=== PATIENT | male | born 1990 | race African-American/Black ===

== ENCOUNTER 2018-11-10 17:07 | Emergency (ER) | payer SELFPAY ==
[~2018-11-10] VITALS: Ht 172.7 cm; Wt 84.8 kg
[2018-11-10] MEDS ORDERED: KETOROLAC TROMETHAMINE INJ 60 MG/2 ML VIAL IM ONE (18:00)
[2018-11-10] MEDS ORDERED: KETOROLAC TROMETHAMINE INJ 30 MG/ML VIAL ONE (18:02)
--- NOTE | 2018-11-10 19:25 | NUR ---
Patient discharged to home in stable condition. Written and verbal after care instructions given. Patient verbalizes understanding of instruction.
[2018-11-10 19:26] VITALS: BP 120/67
--- NOTE | 2018-11-10 19:33 | NUR ---
PT WAS PROVIDED W/ CRUTCHES. PT TEACHING REGARDING SAFE USE OF CRUTCHES PROVIDED W/ DEMONSTRATIONS. PT DISCHRGED HOME AND WALKED OUT IN STABLE CONDITION.
== END 2018-11-10 19:45 | disposition home or self-care (01) ==
LOC: ER 17:08
DX: S93.491A Sprain of other ligament of right ankle, initial encounter (principal); S09.8XXA Other specified injuries of head, initial encounter; F17.200 Nicotine dependence, unspecified, uncomplicated; Z60.2 Problems related to living alone; V23.4XXA Motorcycle driver injured in collision with car, pick-up truck or van in traffic accident, initial encounter; Y93.55 Activity, bike riding; Y92.89 Other specified places as the place of occurrence of the external cause; Y99.8 Other external cause status
CPT/HCPCS: 70450; 73610; 96372; 99284; 99406; J1885